=== PATIENT | female | born 2000 | race Caucasian/White ===

== ENCOUNTER 2019-06-04 01:57 | Inpatient (IN) ==
[2019-06-04 02:37] LABS: Basophils # (auto) 0.01 K/uL (0-0.2); Basophils % (auto) 0.1 %; Hematocrit (blood only) 39.7 % (37-47); Hemoglobin 12.5 g/dL (12.0-16.0); Immature Granulocytes # (auto) 0.06 K/uL (0.00-0.02); Immature Granulocytes % (auto) 0.4 %; Lymphocytes # (auto) 3.39 K/uL (1.2-3.4); Lymphocytes % (auto) 24.3 %; Mean Corpuscular Hemoglobin 26.5 pg (25-34); Mean Corpuscular Hgb Conc 31.5 g/dL (32-36); Mean Corpuscular Volume 84.3 fL (80-100); Mean Platelet Volume 8.8 fL (7.4-10.4); Monocytes # (auto) 1.04 K/uL (0.11-0.59); Monocytes % (auto) 7.4 %; Neutrophils # (auto) 9.46 K/uL (1.4-6.5); Neutrophils % (auto) 67.8 %; Platelet Count 262 K/uL (130-400); RDW Coefficient of Variation 15.1 % (11.5-14.5); RDW Standard Deviation 46.5 fL (36.4-46.3); Red Blood Count 4.71 M/uL (4.2-5.4); White Blood Count 13.96 K/uL (4.8-10.8)
[2019-06-04 02:52] LABS: Partial Thromboplastin Ratio 0.8; Partial Thromboplastin Time 22.8 Seconds (21.0-31.0)
[2019-06-04] MEDS ORDERED: MoRPHine SULFATE 10 MG/ML CARP/VIAL IV STA ×2 (02:53→06:01)
[2019-06-04] MEDS ORDERED: ONDANSETRON INJ 2 MG/ML 2 ML VIAL IV STA (02:53)
[2019-06-04 02:58] LABS: Albumin Level 3.9 gm/dl (3.4-5.0); BUN Creatinine Ratio 19.5 (10-20); Calcium 8.8 mg/dl (8.5-10.1); Creatinine Clr Calc Pharmacy 140.7 ml/min; Est GFR (Non-African American) 100.1; Potassium 3.9 mmol/L (3.5-5.1)
[2019-06-04 03:00] LABS: Albumin Globulin Ratio 0.9 (0.9-2); Bilirubin,Total 0.3 mg/dl (0.2-1); Globulin 4.3 gm/dl (2.5-4.0); Total Protein 8.2 gm/dl (6.4-8.2)
--- NOTE | 2019-06-04 03:05 | Emergency Department Note ---
History of Present Illness General Chief complaint: Swelling/Edema to Extremity Stated complaint: BACK PAIN-SWOLLEN,DISCOLORED,NUMB LFT LEG Source: patient Mode of arrival: ambulatory Limitations: no limitations History of Present Illness Maximum Pain Intensity: 7 This patient is a 18-year-old female who presents to the emergency department for evaluation of left leg pain, swelling and discoloration. The patient states that 2 weeks ago, she developed some back pain with radiation into the left leg. She was seen at [facility] and prescribed some pain medication without relief. She was seen here 4 days ago and had an MRI which showed a possible mass on her spine. She states that she saw a neurosurgeon at [place] 2 days ago, who felt that this mass was not causing her pain and felt her symptoms were likely due to something vascular. She states that she woke up at 8 AM yesterday (approximately 18 hours ago) and noticed that her left leg was very swollen, purplish in color and numb. She states that has worsened throughout the day. She reports it is painful and numb when she walks. She rates her discomfort an 8/10. She reports a history of herniated disks in the back. She denies any history of blood clots. She is on control pills. Denies recent trauma to the leg. Denies recent surgery or travel. Home Medications Home Medications Medication Instructions Recorded Confirmed Type cyclobenzaprine 10 mg PO TID PRN #15 tab 05/31/19 06/04/19 Rx oxycodone 5 mg PO Q6H PRN #14 tab 05/31/19 06/04/19 Rx prednisone 50 mg PO DAILY 5 Days #5 tab 05/31/19 06/04/19 Rx norethindrone-e.estradiol-iron 1 tab PO DAILY 06/04/19 06/04/19 History [ ()] Allergies Allergy/AdvReac Type Severity Reaction Status Date / Time No Known Allergies Allergy Unverified 06/04/19 02:41 Past Med/Surg History Medical History No pertinent past medical history Social History Preferred Language: Senegalese Feels Safe at Home: Yes Smoking Status: Never smoker Review of Systems A total of 10 systems reviewed and were otherwise negative Physical Exam Vital Signs Vital Signs - 24 hr 06/04/19 02:02 06/04/19 03:52 06/04/19 05:55 Temperature 36.4 C L Temperature Source Oral Sepsis Recent Fever Within 48 Hours No Sepsis Action Taken by Nursing No Action Required Pulse Rate 106 H Pulse Rate [Right Finger] 82 95 H Respiratory Rate 18 18 Respiratory Effort / Characteristics Non-Labored Spontaneous Non-Labored Spontaneous Non-Labored Spontaneous Respiratory Depth Normal Normal Normal Respiratory Pattern Regular Regular Blood Pressure 161/122 H Blood Pressure [Left Arm] 128/80 139/86 Blood Pressure Mean 135 Blood Pressure Mean [Left Arm] 96 103 Blood Pressure Position Sitting Blood Pressure Position [Left Arm] Lying Lying Pulse Oximetry 99 100 97 Oxygen Delivery Method Room Air Room Air Room Air VITALS: Vitals are noted on the nurse's note and reviewed by myself. Vital signs stable. GENERAL: This is a 18-year-old female, anxious appearing but in no significant distress, well-developed well-nourished. HEAD: Normocephalic atraumatic. EARS: External auditory canals clear, tympanic membranes pearly [place] without erythema or effusion bilaterally. EYES: Pupils equal round and reactive to light and accommodation. MOUTH: Mucous membranes moist. NECK: Supple without nuchal rigidity. No lymphadenopathy. HEART: Regular rate and rhythm without murmurs gallops or rubs. LUNGS: Clear to auscultation bilaterally without wheezes, rales or rhonchi. No retractions or accessory muscle use. ABDOMEN: Positive bowel sounds x 4. Soft, nontender to palpation BACK: No tenderness of the lumbar spine or paraspinous muscles. EXTREMITIES: The left leg is edematous and slightly erythematous/purplish in color compared to the right. The edema extends from the thigh down to the foot. Dorsalis pedis pulse is nonpalpable. Capillary refill intact. NEURO: Patient was alert and oriented to person place and time. Sensation intact over the left lower extremity. Course Consultations Consultation #1: Dr. Zee - [facility] hospitalist Administered Medications Discontinued Medications Morphine Sulfate (Morphine Sulfate) 6 mg IV NOW STA Stop: 06/04/19 02:54 Last Admin: 06/04/19 02:57 Dose: 6 mg Documented by: [id number] Morphine Sulfate (Morphine Sulfate) 6 mg IV NOW STA Stop: 06/04/19 06:02 Last Admin: 06/04/19 06:06 Dose: 6 mg Documented by: [id number] Ondansetron HCl (Zofran) 4 mg IV NOW STA Stop: 06/04/19 02:54 Last Admin: 06/04/19 02:57 Dose: 4 mg Documented by: [id number] Medical Decision Making Differential Diagnosis Differential diagnosis includes DVT, superficial thrombosis, arterial occlusion, mass/malignancy, infection, among others. Home Medications Current Medication List: was personally reviewed by me Laboratory Data Attestation: I reviewed the patient's lab results. Result diagrams: 06/04/19 02:22 06/04/19 02:22 Lab Results 06/04/19 06/04/19 06/04/19 Range/Units 02:22 02:22 02:22 WBC 13.96 H (4.8-10.8) K/uL RBC 4.71 (4.2-5.4) M/uL Hgb 12.5 (12.0-16.0) g/dL Hct 39.7 (37-47) % MCV 84.3 (80-100) fL MCH 26.5 (25-34) pg MCHC 31.5 L (32-36) g/dL RDW Std Deviation 46.5 H (36.4-46.3) fL RDW Coeff of Kelly 15.1 H (11.5-14.5) % Plt Count 262 (130-400) K/uL MPV 8.8 (7.4-10.4) fL Immature Gran % (Auto) 0.4 % Neut % (Auto) 67.8 % Lymph % (Auto) 24.3 % [place] % (Auto) 7.4 % Eos % (Auto) 0.0 % Baso % (Auto) 0.1 % Immature Gran # (Auto) 0.06 H (0.00-0.02) K/uL Neut # (Auto) 9.46 H (1.4-6.5) K/uL Lymph # (Auto) 3.39 (1.2-3.4) K/uL [place] # (Auto) 1.04 H (0.11-0.59) K/uL Eos # (Auto) 0.00 (0-0.5) K/uL Baso # (Auto) 0.01 (0-0.2) K/uL PT 10.0 (9.0-12.0) Seconds INR 1.0 (0.9-1.1) APTT 22.8 (21.0-31.0) Seconds PTT Ratio 0.8 Sodium 137 (136-145) mmol/L Potassium 3.9 (3.5-5.1) mmol/L Chloride 106 (98-107) mmol/L Carbon Dioxide 26 (21-32) mmol/L Anion Gap 5.0 (3-11) BUN 16 (7-18) mg/dl Creatinine 0.84 (0.6-1.2) mg/dl Est Cr Clr Drug Dosing 140.7 ml/min Est GFR ( Amer) 116.0 Est GFR (Non-Af Amer) 100.1 BUN/Creatinine Ratio 19.5 (10-20) Glucose 94 (70-99) mg/dl Calcium 8.8 (8.5-10.1) mg/dl Total Bilirubin 0.3 (0.2-1) mg/dl AST 16 (15-37) U/L ALT 37 (12-78) U/L Alkaline Phosphatase 87 (45-117) U/L Total Protein 8.2 (6.4-8.2) gm/dl Albumin 3.9 (3.4-5.0) gm/dl Globulin 4.3 H (2.5-4.0) gm/dl Albumin/Globulin Ratio 0.9 (0.9-2) POC Ur Test (NEG) 06/04/19 Range/Units 06:10 WBC (4.8-10.8) K/uL RBC (4.2-5.4) M/uL Hgb (12.0-16.0) g/dL Hct (37-47) % MCV (80-100) fL MCH (25-34) pg MCHC (32-36) g/dL RDW Std Deviation (36.4-46.3) fL RDW Coeff of Kelly (11.5-14.5) % Plt Count (130-400) K/uL MPV (7.4-10.4) fL Immature Gran % (Auto) % Neut % (Auto) % Lymph % (Auto) % [place] % (Auto) % Eos % (Auto) % Baso % (Auto) % Immature Gran # (Auto) (0.00-0.02) K/uL Neut # (Auto) (1.4-6.5) K/uL Lymph # (Auto) (1.2-3.4) K/uL [place] # (Auto) (0.11-0.59) K/uL Eos # (Auto) (0-0.5) K/uL Baso # (Auto) (0-0.2) K/uL PT (9.0-12.0) Seconds INR (0.9-1.1) APTT (21.0-31.0) Seconds PTT Ratio Sodium (136-145) mmol/L Potassium (3.5-5.1) mmol/L Chloride (98-107) mmol/L Carbon Dioxide (21-32) mmol/L Anion Gap (3-11) BUN (7-18) mg/dl Creatinine (0.6-1.2) mg/dl Est Cr Clr Drug Dosing ml/min Est GFR ( Amer) Est GFR (Non-Af Amer) BUN/Creatinine Ratio (10-20) Glucose (70-99) mg/dl Calcium (8.5-10.1) mg/dl Total Bilirubin (0.2-1) mg/dl AST (15-37) U/L ALT (12-78) U/L Alkaline Phosphatase (45-117) U/L Total Protein (6.4-8.2) gm/dl Albumin (3.4-5.0) gm/dl Globulin (2.5-4.0) gm/dl Albumin/Globulin Ratio (0.9-2) POC Ur Test NEG (NEG) Imaging Data Attestation: I personally reviewed and interpreted this imaging study as follows: Radiologist's Impression: US VENOUS LEFT LOWER EXTREMITY: There is DVT in the left common femoral and superficial femoral veins. The calf veins are suboptimally evaluated due to soft tissue swelling. US ARTERIAL LEFT LOWER EXTREMITY: The left calf arteries are not fully evaluated due to soft tissue swelling. Otherwise, the visualized portions of the left lower extremity arteries are patent with triphasic flow on Doppler interrogation. Radiologist: Ivana Fox M.D. Blood Pressure Blood Pressure Findings: Elevated blood pressure Blood Pressure Disposition: elevated BP felt to be situational MDM Narrative The patient is a 18-year-old female who presents today complaining of left leg pain. Previous records were reviewed. Patient was seen here earlier this week due to back pain with radiculopathy. At that time, she had an MRI which showed an indeterminate mass at L3-L4. Patient already had follow-up with neurosurgery, who were apparently concerned that this mass could be something vascular. Patient presents here today with persistent pain and is now having swelling and discoloration of the leg. Ultrasound was obtained and shows a DVT of the left common femoral and superficial femoral veins. Patient has no chest pain or shortness of breath to suggest PE at this time. [facility]. I suspect she will need to be admitted for anticoagulation and vascular surgery consult. The patient was not started on any anticoagulants pending MRI to further evaluate the lesion of her spine to ensure that it would not be at risk for bleeding. Patient did receive IV morphine in the emergency department for pain. She remained stable while in the emergency department. Impression & Plan Deep vein thrombosis (DVT) of proximal vein of left lower extremity, Mass of spine Discharge Plan Visit Data Chief Complaint: Swelling/Edema to Extremity Stated Complaint: BACK PAIN-SWOLLEN,DISCOLORED,NUMB LFT LEG ED Provider: Zunilda Roy ED Midlevel Provider: Ivone Mae Discharge Problem: Deep vein thrombosis (DVT) of proximal vein of left lower extremity, Mass of spine Forms Stand Alone Forms: My [facility] Prescriptions Prescriptions: No Action cyclobenzaprine 10 mg tablet 10 mg PO TID PRN (Reason: muscle spasm) Qty: 15 RF: 0 oxycodone 5 mg tablet 5 mg PO Q6H PRN (Reason: pain) Qty: 14 RF: 0 prednisone 50 mg tablet 50 mg PO DAILY 5 Days Qty: 5 RF: 0 1.5/30 (28) 1.5 mg-30 mcg (21)/75 mg (7) Tablet 1 tab PO DAILY RF: 0 Referrals Referrals: [place] [Primary Care Provider] -
--- NOTE | 2019-06-04 06:36 | Ultrasound Report ---
US venous doppler LE LT CLINICAL HISTORY: left leg swelling, pain, numbness COMPARISON STUDY: No previous studies for comparison. FINDINGS: Thrombus formation is identified within the left common femoral as well as left superficial femoral veins. Somewhat limited evaluation of venous structures of the lower leg are unremarkable. IMPRESSION: Acute deep venous thrombosis left common femoral and superficial femoral veins. The above report was generated using voice recognition software. It may contain grammatical, syntax or spelling errors. Electronically signed by: Ramón Houston M.D. 06/04/2019 6:34 AM
--- NOTE | 2019-06-04 06:44 | Ultrasound Report ---
Study: Arterial Doppler left leg HISTORY: Pain. Claudication. FINDINGS: Nonspecific soft tissue swelling limits evaluation of the calf vessels. Visualized components of the arterial vasculature appear unremarkable. Triphasic flow is noted throug hout IMPRESSION: 1. Limited study due to soft tissue edema. 2. The visualized arterial structures show normal antegrade triphasic flow. Electronically signed by: Ramón Houston M.D. 06/04/2019 6:43 AM
--- NOTE | 2019-06-04 06:48 | History & Physical Report ---
Date of Service June 04, 2019 Assessment & Plan (1) Spinal cord mass: This is a 18-year-old female with history of disc herniation 3 years ago who presented to the ER on 31 May with severe lower back pain radiating into her left posterior thigh with numbness and tingling of the left lower extremity. 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 Patient was seen by [facility], I personally reviewed the records. They reviewed her MRI of the spine without contrast and the plan was to proceed with MRI of the spine with and without contrast in order to more clearly delineate the etiology of the narrowing, vascular versus neoplastic versus schwannoma or neurofibroma. Patient returns to the ED due to 1 day history of her entire left leg becoming increasingly more swollen and dark purple. Venous duplex ultrasound of the left lower extremity reveals proximal DVT of the femoral vein. Arterial ultrasound shows no clots in the arterial system of the left lower extremity. She endorses pain and swelling in the left lower extremity without loss of sensation. Patient denies past medical history of clots and denies any family history of clots. She has been more sedentary due to her lower back pain over the past few days. She is also on an estrogen-containing oral contraceptive. She denies smoking. She also denies any chest pain or palpitations or difficulty breathing. She denies any headache or blurred vision. Denies any abdominal complaints. No focal weakness or loss of bowel or bladder function. Assessment: Spinal cord mass of unknown etiology -On noncontrast spine MRI 31 May -Proceed with contrast spine MRI -Need to rule out vascular lesion before we can anticoagulate -Consider vascular surgery consult (2) Deep vein thrombosis (DVT) of proximal vein of left lower extremity: Proximal DVT of left lower extremity, provoked versus unprovoked. -Patient is on estrogen-containing OCPs, mild degree of immobility given lower back pain -Awaiting results of spine MRI before proceeding with anticoagulation. -Hypercoagulable work-up ordered by the ED, pending (3) Uses oral contraceptives: Estrogen containing oral contraceptives will be contraindicated in this patient indefinitely. I did discuss this with the patient and she verbalized understanding. History of Present Illness Primary Care Provider: [facility] This is a 18-year-old female with history of disc herniation 3 years ago who presented to the ER on 31 May with severe lower back pain radiating into her left posterior thigh with numbness and tingling of the left lower extremity. 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 Patient was seen by [facility], I personally reviewed the records. They reviewed her MRI of the spine without contrast and the plan was to proceed with MRI of the spine with and without contrast in order to more clearly delineate the etiology of the narrowing, vascular versus neoplastic versus schwannoma or neurofibroma. Patient returns to the ED due to 1 day history of her entire left leg becoming increasingly more swollen and dark purple. Venous duplex ultrasound of the left lower extremity reveals proximal DVT of the femoral vein. Arterial ultrasound shows no clots in the arterial system of the left lower extremity. She endorses pain and swelling in the left lower extremity without loss of sensation. Patient denies past medical history of clots and denies any family history of clots. She has been more sedentary due to her lower back pain over the past few days. She is also on an estrogen-containing oral contraceptive. She denies smoking. She also denies any chest pain or palpitations or difficulty breathing. She denies any headache or blurred vision. Denies any abdominal complaints. No focal weakness or loss of bowel or bladder function. Allergies Allergy/AdvReac Type Severity Reaction Status Date / Time No Known Allergies Allergy Unverified 06/04/19 02:41 Past Med/Surg History Medical History No pertinent past medical history Social History Preferred Language: Thai Communication Ability: Effective Search Planner Required: No Beliefs That Will Affect Care: None Current Living Situation: Other Current Living Situation Comment: Student at [employer] lives with roommates off campus Feels Safe at Home: Yes Safety Concerns: Feels Safe At This Time Smoking Status: Never smoker Do You Dip or Chew Tobacco: No ; Second Hand Exposure: No ; Hx Alcohol Use: No Hx Substance Use: No Review of Systems Review of Systems: She endorses pain and swelling in the left lower extremity without loss of sensation. Patient denies past medical history of clots and denies any family history of clots. She has been more sedentary due to her lower back pain over the past few days. She is also on an estrogen-containing oral contraceptive. She denies smoking. She also denies any chest pain or palpitations or difficulty breathing. She denies any headache or blurred vision. Denies any abdominal complaints. No focal weakness or loss of bowel or bladder function. Physical Exam Physical Exam: Vitals noted and within normal limits GENERAL: Awake, alert to person, place, and time, nontoxic-appearing, in no distress. HENT: Normocephalic, atraumatic. Mucus membranes appear moist. EYES: Normal conjunctiva. Sclera non-icteric. EOMI. NECK: Supple. Full range of motion. No JVD. RESPIRATORY: Clear to auscultation. Normal work of breathing. CARDIAC: Regular rate, normal rhythm. Extremities warm and well perfused, 2+ radial pulses bilaterally; 2+ posterior tibialis pulses bilaterally. ABDOMEN: Soft, non-distended. No tenderness to palpation in all four quadrants. No rebound or guarding. No masses. Bowel sounds are normal. LOWER EXTREMITIES: Inspection of calves reveal left thigh and calf larger than right. Moderately, diffusely tender in the left lower extremity. Trace edema of the left lower extremity. Mottled, slightly purple discoloration of the entire left lower extremity. NEURO: No gross focal motor deficits noted. Sensation in tact. CN II-XII grossly in tact. . SKIN: Rash not present. No jaundice noted. Significant lesions not present. PSYCH: Appropriate mood and affect. Cooperative. Exam as done by Eneida Hay MD, Senior Net Software Developer. Results & Data Vital Signs (Past 12 Hours) Vital Signs Temp Pulse Pulse Resp BP BP Pulse Ox 06/04/19 05:55 95 H 18 139/86 97 06/04/19 03:52 82 18 128/80 100 06/04/19 02:02 36.4 C L 106 H 161/122 H 99 Laboratory Results 06/04/19 06/04/19 06/04/19 Range/Units 06:10 05:23 05:23 WBC (4.8-10.8) K/uL RBC (4.2-5.4) M/uL Hgb (12.0-16.0) g/dL Hct (37-47) % MCV (80-100) fL MCH (25-34) pg MCHC (32-36) g/dL RDW Std Deviation (36.4-46.3) fL RDW Coeff of Kelly (11.5-14.5) % Plt Count (130-400) K/uL MPV (7.4-10.4) fL Immature Gran % (Auto) % Neut % (Auto) % Lymph % (Auto) % [place] % (Auto) % Eos % (Auto) % Baso % (Auto) % Immature Gran # (Auto) (0.00-0.02) K/uL Neut # (Auto) (1.4-6.5) K/uL Lymph # (Auto) (1.2-3.4) K/uL [place] # (Auto) (0.11-0.59) K/uL Eos # (Auto) (0-0.5) K/uL Baso # (Auto) (0-0.2) K/uL PT (9.0-12.0) Seconds INR (0.9-1.1) APTT (21.0-31.0) Seconds PTT Ratio Hexagonal Phase Confirm Pending Protein C Activity Pending Protein S Activity Pending Antithrombin III Activ Pending Factor V Leiden Mutat Pending Factor V Leiden Interp Pending Sodium (136-145) mmol/L Potassium (3.5-5.1) mmol/L Chloride (98-107) mmol/L Carbon Dioxide (21-32) mmol/L Anion Gap (3-11) BUN (7-18) mg/dl Creatinine (0.6-1.2) mg/dl Est Cr Clr Drug Dosing ml/min Est GFR ( Amer) Est GFR (Non-Af Amer) BUN/Creatinine Ratio (10-20) Glucose (70-99) mg/dl Calcium (8.5-10.1) mg/dl Total Bilirubin (0.2-1) mg/dl AST (15-37) U/L ALT (12-78) U/L Alkaline Phosphatase (45-117) U/L Total Protein (6.4-8.2) gm/dl Albumin (3.4-5.0) gm/dl Globulin (2.5-4.0) gm/dl Albumin/Globulin Ratio (0.9-2) Homocysteine Pending POC Ur Test NEG (NEG) Beta-2-GPI IgG Ab Pending Beta-2-GPI IgA Ab Pending Beta-2-GPI IgM Ab Pending Anti-Cardiolipin IgG Ab Pending Anti-Cardiolipin IgA Ab Pending Anti-Cardiolipin IgM Ab Pending Prothrombin Gene Mutate Pending Prothromb Gene Comment Pending 06/04/19 06/04/19 06/04/19 Range/Units 02:22 02:22 02:22 WBC 13.96 H (4.8-10.8) K/uL RBC 4.71 (4.2-5.4) M/uL Hgb 12.5 (12.0-16.0) g/dL Hct 39.7 (37-47) % MCV 84.3 (80-100) fL MCH 26.5 (25-34) pg MCHC 31.5 L (32-36) g/dL RDW Std Deviation 46.5 H (36.4-46.3) fL RDW Coeff of Kelly 15.1 H (11.5-14.5) % Plt Count 262 (130-400) K/uL MPV 8.8 (7.4-10.4) fL Immature Gran % (Auto) 0.4 % Neut % (Auto) 67.8 % Lymph % (Auto) 24.3 % [place] % (Auto) 7.4 % Eos % (Auto) 0.0 % Baso % (Auto) 0.1 % Immature Gran # (Auto) 0.06 H (0.00-0.02) K/uL Neut # (Auto) 9.46 H (1.4-6.5) K/uL Lymph # (Auto) 3.39 (1.2-3.4) K/uL [place] # (Auto) 1.04 H (0.11-0.59) K/uL Eos # (Auto) 0.00 (0-0.5) K/uL Baso # (Auto) 0.01 (0-0.2) K/uL PT 10.0 (9.0-12.0) Seconds INR 1.0 (0.9-1.1) APTT 22.8 (21.0-31.0) Seconds PTT Ratio 0.8 Hexagonal Phase Confirm Protein C Activity Protein S Activity Antithrombin III Activ Factor V Leiden Mutat Factor V Leiden Interp Sodium 137 (136-145) mmol/L Potassium 3.9 (3.5-5.1) mmol/L Chloride 106 (98-107) mmol/L Carbon Dioxide 26 (21-32) mmol/L Anion Gap 5.0 (3-11) BUN 16 (7-18) mg/dl Creatinine 0.84 (0.6-1.2) mg/dl Est Cr Clr Drug Dosing 140.7 ml/min Est GFR ( Amer) 116.0 Est GFR (Non-Af Amer) 100.1 BUN/Creatinine Ratio 19.5 (10-20) Glucose 94 (70-99) mg/dl Calcium 8.8 (8.5-10.1) mg/dl Total Bilirubin 0.3 (0.2-1) mg/dl AST 16 (15-37) U/L ALT 37 (12-78) U/L Alkaline Phosphatase 87 (45-117) U/L Total Protein 8.2 (6.4-8.2) gm/dl Albumin 3.9 (3.4-5.0) gm/dl Globulin 4.3 H (2.5-4.0) gm/dl Albumin/Globulin Ratio 0.9 (0.9-2) Homocysteine POC Ur Test (NEG) Beta-2-GPI IgG Ab Beta-2-GPI IgA Ab Beta-2-GPI IgM Ab Anti-Cardiolipin IgG Ab Anti-Cardiolipin IgA Ab Anti-Cardiolipin IgM Ab Prothrombin Gene Mutate Prothromb Gene Comment Supervising Physician Co-Signing Physician Notes Attending addendum: I have physically seen this patient, have supervised the medical residents activities, and agree with the H&P unless as otherwise noted. Assessment and Plan: DVT of left lower extremity femoral veins and superficial femoral vein- Discontinue OCPs, and will need to avoid estrogen-containing compounds in the future. Order hypercoagulable work-up. We will hold off anticoagulation until there is further clarification of lumbar spine mass lesion. Spinal cord lesion of unknown etiology- MRI on 05/31 noted initial lesion Patient was seen by neurosurgery at [facility] in the interim, and there was concern regarding the possibility of a AV malformation, and thus the recommendation was to perform an MRI of the lumbar spine with dynamic protocol. Radiology not in any reports a standard MRI with and without contrast would suffice, and this has been ordered. If the results of the MRI of lumbar spine are acceptable, the patient will be started on IV heparin or the form of anticoagulation. If MRI of the lumbar spine is suggestive of AV malformation or other concerning mass lesion, the patient will likely either need an IVC filter temporarily, or referral back to [facility] neurosurgery. Remainder of orders and notations as noted. PG Care Time/CCT Total # of Minutes Spent Total Time Spent with Patient: Total time spent is greater than 50% in coordination of care (as documented) at patient's floor/unit and/or counseling patient: Resident Activity Tracking Resident Involvement: Resident Care Provided Care Provided: Adult Hospital Medicine
[2019-06-04] MEDS ORDERED: GADOBUTROL 65ML VIAL IV PRN (07:56)
[2019-06-04] MEDS ORDERED: HYDROmorphone INJ 1 MG/ML SYRINGE IV STA (08:22)
[2019-06-04] MEDS ORDERED: HYDROmorphone INJ 1 MG/ML SYRINGE ONE (08:23)
--- NOTE | 2019-06-04 08:31 | Magnetic Resonance Report ---
MR lumbar spine wo/w con HISTORY: Pain. Neuropathy. lesion at L3-4, L4-5 TECHNIQUE: Multiplanar multisequence MRI of the lumbar spine was performed both before and after the intravenous administration of contrast. COMPARISON: 05/31/2019 FINDINGS: For the purpose of the report the L5-S1 disc space will be located on axial image 27 of 30. Paraspinal structures indicate distention of the bulk of the posterior lumbar and superior pelvic supriya ous vasculature. There is a small caliber inferior vena cava at approximately the level of the renal hilar regions. The soft tissue mass occupying the left neural foramina at L3-L4 demonstrates expansion of the neural foramina. There is evidence for postcontrast peripheral enhancement of the bulk of the distended supriya ous structures in the paraspinal distribution. This would indicate thrombosis of the bulk of the visu alized venous structures. This vessel distention extends to the left paraspinal musculature. There is extension to the anterior aspect of the spinal canal at the L3-L4 level. Somewhat of additio nal extension to the L4-L5 level is also noted. 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 Superimposed acute thrombosis is most likely present. IMPRESSION: 1. Extensive distention of the paraspinal and para-aortic venous structures, all of which demonstrate at least partial if not complete thrombosis. 2. This extends to the left neural foramina at L3-L4 with expansion of the left neural foramina and e xtension to the anterior aspect of the spinal canal from L3 through L5. 3. Additional extension to the left posterior paraspinal musculature. 4. Probable near occlusion of the inferior vena cava at the level of the renal hilar region. 5. Given the extensive collateral structures present throughout, this is suggestive of a large vascul ar malformation with superimposed acute thrombosis 6. The presence of multiple collateral vessels within the posterior pelvic region indicates a long-st anding vascular anomaly, with the thrombosis considered an acute superimposed component. The above report was generated using voice recognition software. It may contain grammatical, syntax or spelling errors. Electronically signed by: Ramón Houston M.D. 06/04/2019 8:30 AM
[2019-06-04] MEDS ORDERED: LORazepam 1 MG/2 ML VIAL IV STA (08:43)
[2019-06-04] MEDS ORDERED: ONDANSETRON INJ 2 MG/ML 2 ML VIAL IV PRN (08:45)
[2019-06-04] MEDS ORDERED: OXYCODONE HCL IR 5 MG TAB (IMMEDIATE RELEASE) PO PRN (08:45)
[2019-06-04] MEDS ORDERED: LORazepam 2 MG/4 ML VIAL ONE (08:45)
[2019-06-04] MEDS ORDERED: CYCLOBENZAPRINE HCL 10 MG TAB PO PRN (08:45)
[2019-06-04] MEDS ORDERED: MoRPHine SULFATE 2 MG/ML CARP IV PRN (08:45)
[2019-06-04] MEDS ORDERED: NSS + 20MEQ KCL 20 MEQ/1,000 ML BAG IV SCH (09:00)
[2019-06-04] MEDS ORDERED: predniSONE 50 MG TAB PO SCH (09:00)
--- NOTE | 2019-06-04 11:19 | Discharge Summary ---
Date of Service June 04, 2019 Admission HPI Per Admitting Provider This is a 18-year-old female with history of disc herniation 3 years ago who presented to the ER on 31 May with severe lower back pain radiating into her left posterior thigh with numbness and tingling of the left lower extremity. 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 Patient was seen by [facility], I personally reviewed the records. They reviewed her MRI of the spine without contrast and the plan was to proceed with MRI of the spine with and without contrast in order to more clearly delineate the etiology of the narrowing, vascular versus neoplastic versus schwannoma or neurofibroma. Patient returns to the ED due to 1 day history of her entire left leg becoming increasingly more swollen and dark purple. Venous duplex ultrasound of the left lower extremity reveals proximal DVT of the femoral vein. Arterial ultrasound shows no clots in the arterial system of the left lower extremity. She endorses pain and swelling in the left lower extremity without loss of sensation. Patient denies past medical history of clots and denies any family history of clots. She has been more sedentary due to her lower back pain over the past few days. She is also on an estrogen-containing oral contraceptive. She denies smoking. She also denies any chest pain or palpitations or difficulty breathing. She denies any headache or blurred vision. Denies any abdominal complaints. No focal weakness or loss of bowel or bladder function. Admission Exam Per Admitting Provider Physical Exam: Vitals noted and within normal limits GENERAL: Awake, alert to person, place, and time, nontoxic-appearing, in no distress. HENT: Normocephalic, atraumatic. Mucus membranes appear moist. EYES: Normal conjunctiva. Sclera non-icteric. EOMI. NECK: Supple. Full range of motion. No JVD. RESPIRATORY: Clear to auscultation. Normal work of breathing. CARDIAC: Regular rate, normal rhythm. Extremities warm and well perfused, 2+ radial pulses bilaterally; 2+ posterior tibialis pulses bilaterally. ABDOMEN: Soft, non-distended. No tenderness to palpation in all four quadrants. No rebound or guarding. No masses. Bowel sounds are normal. LOWER EXTREMITIES: Inspection of calves reveal left thigh and calf larger than right. Moderately, diffusely tender in the left lower extremity. Trace edema of the left lower extremity. Mottled, slightly purple discoloration of the entire left lower extremity. NEURO: No gross focal motor deficits noted. Sensation in tact. CN II-XII grossly in tact. . SKIN: Rash not present. No jaundice noted. Significant lesions not present. PSYCH: Appropriate mood and affect. Cooperative. Exam as done by Eneida Hay MD, [place]. Principal Diagnosis 1. Left femoral DVT 2. 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 Doppler pulses evaluated on left with marking. NEURO: A&OX3 Discharge Data Allergies Allergy/AdvReac Type Severity Reaction Status Date / Time No Known Allergies Allergy Unverified 06/04/19 02:41 Consultations 06/04/19 04:59 ED Decision to Admit Stat 06/04/19 10:35 Burn CD for patient Stat Ordered Studies 06/04/19 02:16 US arterial duplex LE LT Urgent Study: Arterial Doppler left leg HISTORY: Pain. Claudication. FINDINGS: Nonspecific soft tissue swelling limits evaluation of the calf vessels. Visualized components of the arterial vasculature appear unremarkable. Triphasic flow is noted throughout IMPRESSION: 1. Limited study due to soft tissue edema. 2. The visualized arterial structures show normal antegrade triphasic flow. Electronically signed by: Ramón Houston M.D. 06/04/2019 6:43 AM US venous doppler LE LT Urgent US venous doppler LE LT CLINICAL HISTORY: left leg swelling, pain, numbness COMPARISON STUDY: No previous studies for comparison. FINDINGS: Thrombus formation is identified within the left common femoral as well as left superficial femoral veins. Somewhat limited evaluation of venous structures of the lower leg are unremarkable. IMPRESSION: Acute deep venous thrombosis left common femoral and superficial femoral veins. Electronically signed by: Ramón Houston M.D. 06/04/2019 6:34 AM 06/04/19 06:44 MR lumbar spine wo/w con Stat MR lumbar spine wo/w con HISTORY: Pain. Neuropathy. lesion at L3-4, L4-5 TECHNIQUE: Multiplanar multisequence MRI of the lumbar spine was performed both before and after the intravenous administration of contrast. COMPARISON: 05/31/2019 FINDINGS: For the purpose of the report the L5-S1 disc space will be located on axial image 27 of 30. Paraspinal structures indicate distention of the bulk of the posterior lumbar and superior pelvic venous vasculature. There is a small caliber inferior vena cava at approximately the level of the renal hilar regions. The soft tissue mass occupying the left neural foramina at L3-L4 demonstrates expansion of the neural foramina. There is evidence for postcontrast peripheral enhancement of the bulk of the distended venous structures in the paraspinal distribution. This would indicate thrombosis of the bulk of the visualized venous structures. This vessel distention extends to the left paraspinal musculature. There is extension to the anterior aspect of the spinal canal at the L3-L4 level. Somewhat of additional extension to the L4-L5 level is also noted. 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 Superimposed acute thrombosis is most likely present. IMPRESSION: 1. Extensive distention of the paraspinal and para-aortic venous structures, all of which demonstrate at least partial if not complete thrombosis. 2. This extends to the left neural foramina at L3-L4 with expansion of the left neural foramina and extension to the anterior aspect of the spinal canal from L3 through L5. 3. Additional extension to the left posterior paraspinal musculature. 4. Probable near occlusion of the inferior vena cava at the level of the renal hilar region. 5. Given the extensive collateral structures present throughout, this is suggestive of a large vascular malformation with superimposed acute thrombosis 6. The presence of multiple collateral vessels within the posterior pelvic region indicates a long-standing vascular anomaly, with the thrombosis considered an acute superimposed component. Electronically signed by: Ramón Houston M.D. 06/04/2019 8:30 AM Hospital Course (1) Inferior vena cava occlusion: Near occlusive thrombus of the IVC secondary to extension of left femoral DVT Anticoagulation not started as we could not get neurosurgical comment from outside facility Bedrest Transfer to [facility] for further evaluation and treatment (2) Deep vein thrombosis (DVT) of proximal vein of left lower extremity: Complete bed rest No anticoagulation started secondary to spinal column involvement Transfer to [facility] per discussion with Dr. 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 I discussed this personally with Dr. Chambers her of her she neurosurgery Patient being transferred to [facility] for further evaluation and treatment and possible intervention complete bed rest ordered Further management by [facility] team Outpatient follow-up with [facility] Total Time Total Time Spent Total Time Spent (In Minutes): 60 Discharge Plan Discharge Items Patient Disposition: Transfer Acute Care Hospital Reason For Visit: LLE DVT, LUMBAR SPINE LESION Discharge Diagnosis: Near complete occlusion of IVC, complete occlusion of left femoral deep and superficial veins, vascular distention into the foramina of L3 through L5. Activity: As commented below Activity Comment: Complete bed rest Lifting: None Non-emergency contact: Primary Care Provider Call non-emergency contact if: you have any medication questions Follow-up/Referrals: [facility] [Primary Care Provider] - Diet: Regular Diet Comment: NPO until evaluated by [facility] team Addtl Attending Provider Instructions: Keep patient nonambulatory until evaluated by [facility] team Pending Studies at Discharge: No Stand-Alone Forms: [facility] Patient informed of condition?: Yes DNR: No Discharge Level of Care: Other Communicable Disease: No Discharge Prognosis: Other Lines: Peripheral IV Urinary Catheter: No Medications and DC Order Prescriptions: Discontinued cyclobenzaprine 10 mg tablet 10 mg PO TID PRN (Reason: muscle spasm) Qty: 15 RF: 0 oxycodone 5 mg tablet 5 mg PO Q6H PRN (Reason: pain) Qty: 14 RF: 0 prednisone 50 mg tablet 50 mg PO DAILY 5 Days Qty: 5 RF: 0 1.5/30 (28) 1.5 mg-30 mcg (21)/75 mg (7) Tablet 1 tab PO DAILY RF: 0 Discharge Orders: Discharge Order (Routine); Ordered 06/04/19 Ordered By: Edin Patel Admission Data Admit Date/Time: 06/04/19 06:43 Attending Provider: Bjorn Gooden Admit Provider: Maximino Zee Primary Care Provider: [facility] Other Providers: Maximino Zee Supervising Physician Co-Signing Physician Notes Patient seen and examined with Edin CARY. I agree with their exam findings, review of systems, assessment and plan. I personally reviewed the lab work and imaging as well. patient having pain in left leg, better after Dilaudid reviewed plan with patient and her family to go to tertiary care - Acute left leg DVT with thrombus extending into pelvic veins, inferior vena cava, veins around spine possible AVM in paraspinal area will urgently transfer to [facility] for neurosurgery and vascular evaluation
[2019-06-04] MEDS ORDERED: HYDROmorphone INJ 1 MG/ML SYRINGE IV SCH (11:29)
[2019-06-09 22:35] LABS: Anti Cardiolipin Ab IgG <14 GPL (< = 14); Anti Cardiolipin Ab IgM <12 MPL (< = 12); Anti-Cardiolipin Ab IgA <11 APL (< = 11)
[2019-06-09 22:35] LABS: Anti Cardiolipin Ab IgG <14 GPL (< = 14); Anti Cardiolipin Ab IgM <12 MPL (< = 12); Anti-Cardiolipin Ab IgA <11 APL (< = 11); Anti-Thrombin III Activity 115 % activity (80-120); B2 Glycoprotein IgA <9 SAU (<=20); B2 Glycoprotein IgG <9 SGU (<=20); B2 Glycoprotein IgM <9 SMU (<=20); Lupus Antic Hexagonal Phase Weak Positive (Negative); Protein S Functional(Activity) 131 % (60-140)
== END 2019-06-04 11:56 | disposition short-term general hospital (02) | DRG 294 ==
LOC: ED 01:57 → 2S 06:43 → SUATTDRO 06:43 → 2S 07:08